=== PATIENT | male | born 1995 | race Asian ===

== ENCOUNTER 2024-02-22 06:16 | Day surgery (SDC) | payer OTHER ==
[2024-02-20 13:18] VITALS: BMI 23.3
[2024-02-22] MEDS ORDERED: SUCCINYLCHOLINE CHLORIDE 200 MG/10 ML SYRINGE ONE (07:23)
[2024-02-22] MEDS ORDERED: PROPOFOL 40 ML ONE (07:23)
[2024-02-22] MEDS ORDERED: MIDAZOLAM HCL 2 MG/2 ML SINGLE DOSE VIAL ONE (07:23)
[2024-02-22] MEDS ORDERED: VANCOMYCIN 1,000 MG VIAL (RESTRICTED TO ID ONLY) ONE (07:23)
[2024-02-22] MEDS ORDERED: BUPIVACAINE LIPOSOME/PF (EXPAREL) 266 MG/20 ML VIAL ONE (07:26)
[2024-02-22] MEDS ORDERED: BUPIVACAINE HCL/PF 2.5 MG/ML - 30 ML VIAL IJ ONE (07:29)
[2024-02-22] MEDS ORDERED: BUPIVACAINE HCL/EPINEPHRINE/PF 30 ML VIAL IJ ONE (07:43)
[2024-02-22] MEDS ORDERED: HYDROmorphone HCL/PF 1 MG/ML VIAL ONE (07:59)
[2024-02-22] MEDS ORDERED: PROPOFOL 20 ML ONE (08:50)
[2024-02-22] MEDS ORDERED: EPINEPHrine 1:1,000 1,000 MCG/ML ML ONE (09:11)
[2024-02-22] MEDS ORDERED: ACETAMINOPHEN INJECTION 100 ML ONE (09:58)
[2024-02-22] MEDS ORDERED: oxyCODONE HCL 5 MG TABLET PO PRN ×2 (10:01)
[2024-02-22] MEDS: ACETAMINOPHEN 1000 MG/100 ML BAG IVPB ONE (10:03)
[2024-02-22] MEDS ORDERED: LACTATED RINGERS SOLUTION 1,000 ML IV SCH (10:15)
[2024-02-22 14:56] VITALS: TEMP 97
[2024-02-22 14:58] VITALS: BP 128/82; PULSE 81; RESP 14
== END 2024-02-22 11:41 | disposition home or self-care (01) ==
LOC: FASU 06:16
PROVIDERS: ATTEND Orthopaedic Surgery
PROC: 0MRN47Z Replacement of Right Knee Bursa and Ligament with Autologous Tissue Substitute, Percutaneous Endoscopic Approach (ICD-10-PCS; principal; 2024-02-22 08:25)
DX: S83.511A Sprain of anterior cruciate ligament of right knee, initial encounter (principal); X58.XXXA Exposure to other specified factors, initial encounter; Y92.9 Unspecified place or not applicable; Y93.9 Activity, unspecified
CPT/HCPCS: 29888; C1713; 94760; 97116-GP; J0131